=== PATIENT | male | born 1990 | race Asian ===

== ENCOUNTER 2016-07-24 20:43 | Emergency (ER) | payer OTHER ==
[~2016-07-24] VITALS: Ht 177.8 cm; Wt 63.6 kg
[2016-07-24 20:48] VITALS: TEMP 36.6; Ht 177.8 cm; Wt 63.6 kg
--- NOTE | 2016-07-24 21:14 | DIAGNOSTIC IMAGING REPORT ---
LEFT KNEE 2 VIEWS CLINICAL HISTORY: Left knee pain. No history of trauma. FINDINGS: AP and crosstable lateral views of left knee are obtained. No prior studies are available for comparison at the time of dictation. The skeletal structures are well mineralized. No fracture is seen. The joint spaces are well-maintained. There is no significant joint effusion. Mild prepatellar soft tissue edema is noted. IMPRESSION: Mild soft tissue swelling with no acute bony abnormality identified. Electronically signed by: Sonny Ochoa M.D. 07/24/2016 9:12 PM Dictated Date/Time: 07/24/2016 9:12 PM
--- NOTE | 2016-07-24 21:19 | EMERGENCY ROOM VISIT NOTE ---
History Report prepared by Larissa: Shaan Andrade Under the Supervision of: Dr. Arnoldo Hyatt M.D. First contact with patient: 20:51 Chief Complaint: KNEEPAIN Stated Complaint: KNEE PAIN AND SWELLING History of Present Illness The patient is a 25 year old male who presents to the Emergency Room with complaints of persistent left knee pain that started after a fall yesterday. The patient complains of swelling and discomfort. He is able to walk and bend his knee. He rates his discomfort as a 4 out of 10 in severity. Source of History: patient Onset: yesterday after a fall Position: knee (left) Symptom Intensity: 4/10 in severity Timing: other (persistent) Note: Other associated symptoms: swelling to left knee Review of Systems See HPI for pertinent positives & negatives. A total of 10 systems reviewed and were otherwise negative. Past Medical & Surgical Medical Problems: (1) No pertinent past medical history Family History FH: hypertension Social History Smoking Status: Never Smoker Marital Status: single Housing Status: lives with roommate Occupation Status: [employer] Allergies Coded Allergies: No Known Allergies (Unverified , 02/24/14) Physical Exam Vital Signs Date Time Temp Pulse Resp B/P Pulse Ox O2 Delivery O2 Flow Rate FiO2 07/24/16 21:26 89 18 123/77 96 Room Air 07/24/16 20:48 36.6 89 18 113/75 96 Room Air Physical Exam GENERAL: Patient is a healthy-appearing well-nourished HEAD: Normocephalic atraumatic EYES: Ocular movements intact pupils equal and react to light OROPHARYNX mucous membranes are moist no exudates present no erythema or edema present NECK: Supple no nuchal rigidity CHEST: Good equal expansion LUNGS: Clear and equal to auscultation CARDIAC: Normal S1 and S2 ABDOMEN: Soft nontender no guarding BACK: No CVA tenderness EXTREMITIES: Good range of motion of knee, foot neurovascularly intact. NEURO: Patient is following commands is answering questions appropriately. Alert and oriented x3 Cranial Nerves 2-12 grossly intact Medical Decision & Procedures ER Provider Diagnostic Interpretation: X-ray results as stated below per interpretation by me and the radiologist: LEFT KNEE 2 VIEWS CLINICAL HISTORY: Left knee pain. No history of trauma. FINDINGS: AP and crosstable lateral views of left knee are obtained. No prior studies are available for comparison at the time of dictation. The skeletal structures are well mineralized. No fracture is seen. The joint spaces are well-maintained. There is no significant joint effusion. Mild prepatellar soft tissue edema is noted. IMPRESSION: Mild soft tissue swelling with no acute bony abnormality identified. Electronically signed by: Sonny Ochoa M.D. 07/24/2016 9:12 PM Dictated Date/Time: 07/24/2016 9:12 PM ED Course 2047: Past medical records reviewed. The patient was evaluated in room D9. A complete history and physical examination was performed. 2104: Upon reexamination the patient is resting comfortably. I discussed results and treatment plan with the patient. He verbalizes agreement and understanding. The patient is ready for discharge. Medical Decision Differential diagnosis: Etiologies such as fracture, dislocation, neurovascular compromise, compartment syndrome, soft tissue injury, as well as others were entertained. This is a 25-year-old male who presents to see department complaining of knee pain. The patient has a normal anterior posterior drawer sign is neurovascularly intact. I do believe the patient can be placed in a Napoleon wrap. Patient was in agreement with the treatment plan. Impression Primary Impression: Knee pain Scribe Attestation The scribe's documentation has been prepared under my direction and personally reviewed by me in its entirety. I confirm that the note above accurately reflects all work, treatment, procedures, and medical decision making performed by me. Departure Information Dispostion Home / Self-Care Referrals [facility] (PCP) Forms HOME CARE DOCUMENTATION FORM, IMPORTANT VISIT INFORMATION Patient Instructions ED Knee Pain [facility], [facility], Swelling Knee Pain Reduce Additional Instructions Follow up with DR Graham's office Take 600 mg Ibuprofen every 6 hours You have been examined and treated today on an emergency basis only. This is not a substitute for, or an effort to provide, complete comprehensive medical care. It is impossible to recognize and treat all injuries or illnesses in a single emergency department visit. It is therefore important that you follow up closely with [facility]. Call as soon as possible for an appointment. Thank you for your time and consideration. I look forward to speaking with you again soon. Please don't hesitate to call us if you have any questions. Problem Qualifiers Primary Impression: Knee pain Laterality: right Chronicity: acute Qualified Codes: M25.561 - Pain in right knee
[2016-07-24 21:26] VITALS: BP 123/77; PULSE 89; O2SAT 96
--- NOTE | 2016-07-26 09:24 | EDITING REQUIRED CODING QUERY ---
CODING QUERY Dr. Hyatt, To promote full compliance with coding requirements relating to patient care, provider participation is requested in all cases of ship's carpenter uncertainty. Please assist us with the question(s) below: Coding Question(s): History of Present Illness states patient has left knee pain. Impression states right knee pain. Please clarify laterality below: ( ) Right Knee Pain (X ) Left Knee Pain ( ) Other Please Explain: Physician's Response(s): Thank you Gustavo Sharif Principal Diagnosis: "_that condition established after study, to be chiefly responsible for occasioning the admission of the patient to the hospital for care." Co-Existing Principal Diagnosis: "_when two or more diagnoses equally meet the criteria for principal diagnosis as determined by the circumstances of admission, diagnostic work up, and/or therapy provided, and the Alphabetic Index, Tabular List, or another coding guideline does not provide sequencing direction, any one of the diagnoses may be sequenced first." "When the physician has documented what appears to be a current diagnosis in the body of the record, but has not included the diagnosis in the final diagnostic statement, the physician should be asked whether the diagnosis should be added." (Source Coding Clinic 2 QTR90. p3-4)
== END 2016-07-24 21:33 | disposition home or self-care (01) ==
LOC: C.EDB 20:46 → C.EDD 21:33
DX: M25.562 Pain in left knee (principal); Z82.49 Family history of ischemic heart disease and other diseases of the circulatory system

== ENCOUNTER → 2017-02-22 | Outpatient (CLI) | payer OTHER ==
--- NOTE | 2017-02-22 14:00 | ECHOCARDIOGRAM REPORT ---
*NOTICE TO RECEIVING REPUBLICAN AGENCY This information is strictly Confidential and protected under [place] law. [place] law prohibits you from making any further disclosure of this information unless further disclosure is expressly permitted by the written consent of the person to whom it pertains or is authorized by law. A general authorization for the release of medical or other information is not sufficient for this purpose. Hospital accepts no responsibility if the information is made available to any other person, INCLUDING THE PATIENT. Interpretation Summary * Name: RENÉ SPANGLER Study Date: 02/22/2017 12:27 PM BP: 123/77 mmHg * Patient Location: [facility] HR: 89 * : 1990 (M/d/yyyy) Gender: Male Height: 70 in * Age: 26 yrs Ethnicity: Weight: 151 lb * Ordering Physician: Libia Khan * Referring Physician: Libia Khan. * Performed By: Tamera Richter RCS * * Reason For Study: CHEST PAIN / ABN EKG * BSA: 1.9 m2 * -- Conclusions -- * Left ventricular systolic function is normal. * No regional wall motion abnormalities noted. * Ejection Fraction = 60-65%. * No significant valvular pathology. Procedure Details * A complete two-dimensional transthoracic echocardiogram was performed (2D, M-mode, Doppler and color flow Doppler). Left Ventricle * The left ventricle is normal in size. * There is normal left ventricular wall thickness. * Left ventricular systolic function is normal. * Ejection Fraction = 60-65%. * No regional wall motion abnormalities noted. Right Ventricle * The right ventricle is normal size. * The right ventricular systolic function is normal as assessed by tricuspid annular plane systolic excursion (TAPSE) (normal >1.5 cm). Atria * The left atrial size is normal. * Right atrial size is normal. * No ASD detected; PFO is not assessed. Mitral Valve * The mitral valve is normal in structure and function. * There is no mitral valve stenosis. * Significant mitral regurgitation is absent. Tricuspid Valve * The tricuspid valve anatomy is normal. * There is no tricuspid stenosis. * There is trace tricuspid regurgitation. Aortic Valve * The aortic valve is normal in structure and function. * Aortic stenosis is absent. * No aortic regurgitation is present. Pulmonic Valve * The pulmonary valve is not well seen, but the Doppler examination is normal without significant regurgitation or stenosis. Great Vessels * The aortic root is normal size. * The pulmonary artery is not well visualized, but is probably normal size. Pericardium/Pleural * There is no pericardial effusion. Great Vessels * Normal inferior vena cava size and collapsability with sniff indicates a normal right atrial pressure of 3 mmHg MMode 2D Measurements and Calculations IVSd 1.0 cm IVSs 1.4 cm LVIDd 4.0 cm LVIDs 2.7 cm LVPWd 0.95 cm LVPWs 1.4 cm IVS/LVPW 1.1 FS 31.1 % EDV(Teich) 69.3 ml ESV(Teich) 28.1 ml EF(Teich) 59.5 % EDV(cubed) 63.2 ml ESV(cubed) 20.7 ml EF(cubed) 67.3 % % IVS thick 41.6 % % LVPW thick 51.0 % LV mass(C)d 124.2 grams LV mass(C)dI 67.1 grams/m\S\2 LV mass(C)s 132.1 grams LV mass(C)sI 71.3 grams/m\S\2 SV(Teich) 41.2 ml SI(Teich) 22.3 ml/m\S\2 SV(cubed) 42.6 ml SI(cubed) 23.0 ml/m\S\2 Ao root diam 2.7 cm Ao root area 5.8 cm\S\2 ACS 1.9 cm LA dimension 2.4 cm LA/Ao 0.87 LVOT diam 1.8 cm LVOT area 2.5 cm\S\2 LVAd ap4 29.0 cm\S\2 LVLd ap4 7.7 cm EDV(MOD-sp4) 90.3 ml EDV(sp4-el) 91.9 ml LVAs ap4 20.1 cm\S\2 LVLs ap4 7.0 cm ESV(MOD-sp4) 48.6 ml ESV(sp4-el) 49.0 ml EF(MOD-sp4) 46.2 % EF(sp4-el) 46.7 % LVAd ap2 29.6 cm\S\2 LVLd ap2 7.9 cm EDV(MOD-sp2) 90.8 ml EDV(sp2-el) 94.1 ml LVAs ap2 19.7 cm\S\2 LVLs ap2 6.9 cm ESV(MOD-sp2) 46.6 ml ESV(sp2-el) 47.4 ml EF(MOD-sp2) 48.7 % EF(sp2-el) 49.6 % LVLd %diff 2.2 % EDV(MOD-bp) 92.3 ml LVLs %diff -1.08 % ESV(MOD-bp) 47.5 ml EF(MOD-bp) 48.5 % SV(MOD-sp4) 41.8 ml SI(MOD-sp4) 22.6 ml/m\S\2 SV(MOD-sp2) 44.2 ml SI(MOD-sp2) 23.9 ml/m\S\2 SV(MOD-bp) 44.8 ml SI(MOD-bp) 24.2 ml/m\S\2 SV(sp4-el) 42.9 ml SI(sp4-el) 23.2 ml/m\S\2 SV(sp2-el) 46.7 ml SI(sp2-el) 25.2 ml/m\S\2 Doppler Measurements and Calculations Ao V2 max 134.6 cm/sec Ao max PG 7.2 mmHg Ao max PG (full) 1.6 mmHg MARIA GUADALUPE(V,A) 2.2 cm\S\2 MARIA GUADALUPE(V,D) 2.2 cm\S\2 LV V1 max PG 5.7 mmHg LV V1 max 119.2 cm/sec PA V2 max 108.7 cm/sec PA max PG 4.7 mmHg TR max kerri 186.4 cm/sec
== END | disposition home or self-care (01) ==
LOC: C.CPL 12:18
PROVIDERS: ATTEND Family Medicine
DX: R07.9 Chest pain, unspecified (principal); R94.31 Abnormal electrocardiogram [ECG] [EKG]